=== PATIENT | female | born 1940 | race Caucasian/White ===

== ENCOUNTER → 2021-07-06 | Outpatient (CLI) | payer OTHER ==
--- NOTE | 2021-07-06 16:09 | CARDNUC ---
[place] [address] CARDIAC NUCLEAR IMAGING REPORT Name: TYREE HARDWICK V Room: [facility]#: [id number] Admission: 07/06/21 Attend Phys: Naun Hagen, Discharge: Date of : 44 Date of Service: 07/06/21 1608 Report #: [id number] THIS REPORT FOR: cc: Pratik Morejon MD, Dirk R. MD Park, Jin S. MD ~ ADDENDUM APPROVED REPORT Imaging Protocol: Rest Tc-99m/Stress Tc-99m 1 day Study performed: 07/06/2021 09:05:44 Indication: CAD Patient Location: Out-Patient Stress Nurse: EBONY Martinez Tech:TONY Gregory Ht: 5 ft 6 in Wt: 194 lbs BSA: 1.97 m2 BMI: 31.30 Medical History Medical History: CAD non obstructive Medications: no cardiac meds Allergies: sulfa Cardiac Risk Factors: Age Exercise History: Indeterminate Resting Data Rest SPECT myocardial perfusion imaging was performed in supine position 30 minutes following the intravenous injection of 10.9 mCi of Tc-99m Sestamibi. Time of rest injection: 0755 Date: 07/06/2021 The images were gated to evaluate regional wall motion and calculate left ventricular ejection fraction. Administration Route: IV Administration Site: Left AC Pharmacologic Stress Pharmacologic stress test was performed by injecting Regadenoson 0.4 mg IV push over 10-15 seconds immediately followed by the intravenous injection of 34.9 mCi of Tc-99m Sestamibi. Time of stress injection: 904 Date: 07/06/2021 Administration Route: IV Administration Site: Left AC Gated Stress SPECT was performed 40 [place] [address] CARDIAC NUCLEAR IMAGING REPORT Name: TYREE HARDWICK V Room: [facility]#: [id number] Admission: 07/06/21 Attend Phys: Naun Hagen, Discharge: Date of : 44 Date of Service: 07/06/21 1608 Report #: [id number] injection. The images were gated to evaluate regional wall motion and calculate left ventricular ejection fraction. Prone imaging was performed. Stress Test Details Stress Test: Pharmacologic stress testing performed using 0.4 mg of regadenoson per 5 mL given IV over 10 seconds. HR Max Heart Rate (APMHR): 141 bpm Resting HR: 135 bpm Target HR (85% APMHR): 119 bpm Max HR Achieved: 141 bpm % of APMHR: 100 Recovery HR: 136 bpm BP Resting BP: 146/95 mmHg Max BP: 133/80 mmHg Recovery BP: 148/89 mmHg ECG Resting ECG: Sinus Tachycardia Stress ECG: Sinus Tachycardia ST Change: Non-ischemic Nurse Comments DR DAVIS CONSULTED REGARDING PATIENTS HIGH HEART RATE. TEMPERATURE NORMAL, DENIES NVD OR ANEMIA, NO BLEEDING NOTED PATIENT STATES THAT SHE FEELS FINE. OK TO DO NAMRATA PER DR DAVIS Study Quality Study: Good Study Data Post stress, the left ventricular ejection was 71%.. SSS: 0 SRS: 2 SDS: 0 TID = 0.76. Perfusion Normal left ventricular perfusion. Normal perfusion on both the stress and rest images. Wall Motion Normal left [place] [address] CARDIAC NUCLEAR IMAGING REPORT Name: TYREE HARDWICK V Room: [facility]#: [id number] Admission: 07/06/21 Attend Phys: Naun Hagen, Discharge: Date of : 44 Date of Service: 07/06/211607 Report #: [id number] Nuclear Conclusion ECG Findings: negative for ischemia Clinical Findings: non-diagnostic Nuclear Findings: negative for ischemia Exercise Capacity: not assessed Left Ventricular Function: normal This study is of low probability for inducible ischemia or prior infarct. Normal global and segmental LV systolic function. <ELECTRONICALLY SIGNED> By: Damir Cooper MD 07/06/211607 07 1608 Damir Cooper MD /INF
== END ==
LOC: M.NUC 05-28 13:00 → M.CRD 07-02 09:00 → M.NUC 07-02 10:00 → M.CRD 07-02 10:00 → M.NUC 07:29
PROVIDERS: ATTEND Internal Medicine Cardiovascular Disease
DX: I25.10 Atherosclerotic heart disease of native coronary artery without angina pectoris (principal)